=== PATIENT | female | born 1985 | race Caucasian/White ===

== ENCOUNTER 2018-03-12 14:43 | Inpatient (IN) | payer OTHER ==
[~2018-03-12] VITALS: Ht 160 cm; Wt 93.0 kg
[2018-03-12] MEDS ORDERED: PRENATAL 19 TA1 EACH PO (19:14)
[2018-03-12] MEDS ORDERED: ZYRTEC10 MG PO (19:16)
[2018-03-14] MEDS ORDERED: LOCOID15 GM TOP (09:17)
== END 2018-03-14 10:18 | disposition home or self-care (01) | DRG 781 ==
LOC: OB/GYN 14:43 → LDR 14:43 → OB/GYN 03-13 10:55
PROC: 4A1HXCZ Monitoring of Products of Conception, Cardiac Rate, External Approach (ICD-10-PCS; principal; 2018-03-12)
DX: O11.3 Pre-existing hypertension with pre-eclampsia, third trimester (principal); O26.86 Pruritic urticarial papules and plaques of pregnancy (PUPPP); Z3A.32 32 weeks gestation of pregnancy

== ENCOUNTER 2018-04-10 07:21 | Inpatient (IN) | payer OTHER ==
[~2018-04-10] VITALS: Ht 160 cm; Wt 94.3 kg
[~2018-04-10 07:21] MED LIST: LOCOID15 GM TOP; PRENATAL 19 TA1 EACH PO; ZYRTEC10 MG PO
[2018-04-10] MEDS ORDERED: PROBIOTIC1 EAC4 PO (08:41)
== END 2018-04-12 16:46 | DRG 775 ==
LOC: LDR 07:21 → OB/GYN 07:21 → SURH 05-01 16:40
PROC: 10E0XZZ Delivery of Products of Conception, External Approach (ICD-10-PCS; principal; 2018-04-10)
PROC: 0KQM0ZZ Repair Perineum Muscle, Open Approach (ICD-10-PCS; 2018-04-10)
PROC: 10907ZC Drainage of Amniotic Fluid, Therapeutic from Products of Conception, Via Natural or Artificial Opening (ICD-10-PCS; 2018-04-10)
PROC: 3E033VJ Introduction of Other Hormone into Peripheral Vein, Percutaneous Approach (ICD-10-PCS; 2018-04-10)
PROC: 4A033R1 Measurement of Arterial Saturation, Peripheral, Percutaneous Approach (ICD-10-PCS; 2018-04-10)
PROC: 4A1HXCZ Monitoring of Products of Conception, Cardiac Rate, External Approach (ICD-10-PCS; 2018-04-10)
DX: O70.1 Second degree perineal laceration during delivery (principal); Z37.0 Single live birth; O13.4 Gestational [pregnancy-induced] hypertension without significant proteinuria, complicating childbirth; Z3A.37 37 weeks gestation of pregnancy

== ENCOUNTER 2020-08-23 17:39 | Inpatient (IN) | payer OTHER ==
[~2020-08-23] VITALS: Ht 160 cm; Wt 100.7 kg
[~2020-08-23 17:39] MED LIST changes: +PROBIOTIC1 EAC4 PO
[2020-08-23] MEDS ORDERED: PRENATAL + DHA1 EAC1 PO (20:17)
[2020-08-23] MEDS ORDERED: VITAMIN C100 MG PO (20:18)
[2020-08-23] MEDS ORDERED: PEPCID AC20 MG PO (20:23)
[2020-08-27] MEDS ORDERED: NAPR500T14 PO (08:59)
== END 2020-08-27 17:33 | DRG 807 ==
LOC: LDR 17:39 → OB/GYN 08-24 17:29
PROVIDERS: ADMIT Obstetrics & Gynecology; ATTEND Obstetrics & Gynecology
PROC: 4A0HXFZ Measurement of Products of Conception, Cardiac Rhythm, External Approach (ICD-10-PCS; 2020-08-23)
PROC: 10E0XZZ Delivery of Products of Conception, External Approach (ICD-10-PCS; principal; 2020-08-24)
PROC: 0KQM0ZZ Repair Perineum Muscle, Open Approach (ICD-10-PCS; 2020-08-24)
DX: O60.14X0 Preterm labor third trimester with preterm delivery third trimester, not applicable or unspecified (principal); Z37.0 Single live birth; O70.1 Second degree perineal laceration during delivery; Z3A.36 36 weeks gestation of pregnancy

== ENCOUNTER 2023-12-12 05:59 | Day surgery (SDC) | payer OTHER ==
[2023-12-09 11:24] LABS: HEMATOCRIT 41.3 % (36.0-45.00); HEMOGLOBIN 13.9 g/dL (12.0-15.00); MEAN CELL VOLUME 86.2 fL (80.00-100.00); MEAN CORPUSCULAR HEMOGLOBIN 29.1 pg (27.00-32.0); MEAN CORPUSCULAR HGB CONC 33.8 g/dl (32.0-36.0); PLATELET COUNT 284 K/uL (150-450); RED BLOOD COUNT 4.79 M/uL (4.00-6.00)
[2023-12-09 11:27] LABS: PH,URINE 7.5 (5.0-8.0); URINE APPEARANCE Clear; URINE BILIRRUBIN Negative (NEGATIVE); URINE BLOOD Negative; URINE COLOR Yellow; URINE GLUCOSE Negative (NEGATIVE); URINE LEUKOCYTE Negative; URINE NITRATE Negative; URINE PROTEIN Negative (NEGATIVE); URINE UROBILINOGEN 0.2 E.U./dl
[2023-12-09 11:34] LABS: URINE BACTERIA 56.6 uL (0.0-1933); URINE RBC 3.4 uL (0.0-20.8)
[2023-12-09 11:39] LABS: URINE WBC 0.3 uL (0.0-23.2)
[2023-12-09 12:02] LABS: INR 0.97; PROTHROMBIN TIME 10.2 SECONDS (9.0-11.5)
[2023-12-09 12:12] LABS: ALBUMIN 3.8 gm/dL (3.4-5.0); BILIRUBIN TOTAL 0.44 mg/dL (0.3-1.2); CALCIUM 9.5 mg/dL (8.5-10.1); CREATININE SERUM 0.68 mg/dL (0.55-1.02); GFR 96.83; POTASSIUM 4.75 mEq/L (3.5-5.1); TOTAL PROTEIN 6.8 gm/dL (6.4-8.2); TSH 1.46 uIU/mL (0.358-3.74)
[~2023-12-12 05:59] MED LIST changes: +NAPR500T14 PO; +PEPCID AC20 MG PO; +PRENATAL + DHA1 EAC1 PO; +VITAMIN C100 MG PO
[2023-12-12] MEDS ORDERED: NAPR500T14 PO (10:18)
[2023-12-12] MEDS ORDERED: MORGIDOX100 MG PO (10:18)
== END 2023-12-12 17:30 | disposition home or self-care (01) ==
LOC: CIR.AMB 05:59
PROVIDERS: ATTEND Obstetrics & Gynecology
DX: N85.02 Endometrial intraepithelial neoplasia [EIN] (principal); N93.8 Other specified abnormal uterine and vaginal bleeding; D25.0 Submucous leiomyoma of uterus; Z88.1 Allergy status to other antibiotic agents; Z88.2 Allergy status to sulfonamides

== ENCOUNTER 2024-02-18 07:15 | Inpatient (IN) | payer OTHER ==
[~2024-02-18] VITALS: Ht 160 cm; Wt 92.1 kg
[~2024-02-18 07:15] MED LIST changes: +MORGIDOX100 MG PO
[2024-02-18 09:32] LABS: PH,URINE 6.5 (5.0-8.0); URINE APPEARANCE Clear; URINE BILIRRUBIN Negative (NEGATIVE); URINE BLOOD Negative; URINE COLOR Yellow; URINE GLUCOSE Negative (NEGATIVE); URINE LEUKOCYTE Negative; URINE NITRATE Negative; URINE PROTEIN Negative (NEGATIVE); URINE UROBILINOGEN 0.2 E.U./dl
[2024-02-18 09:33] LABS: HEMATOCRIT 41.9 % (36.0-45.00); HEMOGLOBIN 14.6 g/dL (12.0-15.00); MEAN CELL VOLUME 83.9 fL (80.00-100.00); MEAN CORPUSCULAR HEMOGLOBIN 29.2 pg (27.00-32.0); MEAN CORPUSCULAR HGB CONC 34.8 g/dl (32.0-36.0); PLATELET COUNT 260 K/uL (150-450); RED BLOOD COUNT 4.99 M/uL (4.00-6.00); RED CELL DISTRIBUTION WIDTH 14.1 % (11.5-14.5)
[2024-02-18 09:35] LABS: URINE BACTERIA 16.3 uL (0.0-1933); URINE EPITHELIAL CELLS 1.8 uL (0.0-38.8)
[2024-02-18 10:06] LABS: URINE WBC 0.9 uL (0.0-23.2)
[2024-02-18 10:13] LABS: PARTIAL THROMBOPLASTIN TIME 30.5 SECONDS (22.0-34.0); PROTHROMBIN TIME 10.5 SECONDS (9.0-11.5)
[2024-02-18 10:19] LABS: ALBUMIN 3.7 gm/dL (3.4-5.0); BILIRUBIN TOTAL 0.48 mg/dL (0.3-1.2); CALCIUM 9.3 mg/dL (8.5-10.1); CREATININE SERUM 0.67 mg/dL (0.55-1.02); GFR 98.5; GLOBULINA 3.1 G/DL (2.4-3.5); POTASSIUM 4.41 mEq/L (3.5-5.1); TOTAL PROTEIN 6.8 gm/dL (6.4-8.2); TSH 1.16 uIU/mL (0.358-3.74)
[2024-02-27] MEDS ORDERED: CLINDAMYCIN PHOSPHATE 150 MG/ML (900mg) ONE (07:29)
[2024-02-27] MEDS ORDERED: POVIDONE-IODINE 118 ML BOTT TOP ONE ×2 (07:29→08:15)
[2024-02-27] MEDS ORDERED: CLINDAMYCIN PHOSPHATE 150 MG/ML (900mg) IV ONE (08:15)
[2024-02-27] MEDS ORDERED: PROMETHAZINE HCL 50 MG/ML AMPUL IV SCH (08:59)
[2024-02-27] MEDS ORDERED: MEPERIDINE HCL/PF 50 MG/ML VIAL IV SCH (08:59)
[2024-02-27] MEDS ORDERED: RINGERS SOLUTION,LACTATED 1,000 ML IV SCH (09:00)
[2024-02-27] MEDS ORDERED: SIMETHICONE 125 MG CAPSULE PO SCH (09:00)
[2024-02-27 14:59] LABS: HEMOGLOBIN 13.9 g/dL (12.0-15.00); MEAN CELL VOLUME 84.5 fL (80.00-100.00); MEAN CORPUSCULAR HEMOGLOBIN 28.7 pg (27.00-32.0); PLATELET COUNT 270 K/uL (150-450); RED BLOOD COUNT 4.85 M/uL (4.00-6.00); RED CELL DISTRIBUTION WIDTH 13.7 % (11.5-14.5)
[2024-02-27] MEDS ORDERED: ACETAMINOPHEN 500 MG GEL..CAP PO PRN (21:00)
[2024-02-27] MEDS ORDERED: FAMOTIDINE/PF 20 MG in 0.9 % SODIUM CHLORIDE 8 ML IV PUSH SCH (21:00)
[2024-02-27] MEDS ORDERED: FAMOTIDINE/PF 20 MG/2 ML VIAL ONE (21:11)
[2024-02-28] MEDS ORDERED: Tylenol #3 RECTAL (08:58)
[2024-02-28] MEDS ORDERED: NAPR500T14 PO (08:58)
[2024-02-28] MEDS ORDERED: Tylenol #3 PO (09:05)
== END 2024-02-28 10:50 | disposition home or self-care (01) | DRG 743 ==
LOC: O/R 02-27 05:29 → SURH 02-27 07:00 → OB/GYN 02-27 10:15
PROVIDERS: ADMIT Obstetrics & Gynecology; ATTEND Obstetrics & Gynecology
PROC: 0JQC0ZZ Repair Pelvic Region Subcutaneous Tissue and Fascia, Open Approach (ICD-10-PCS; 2024-02-27)
PROC: 0USG0ZZ Reposition Vagina, Open Approach (ICD-10-PCS; 2024-02-27)
PROC: 0TJB8ZZ Inspection of Bladder, Via Natural or Artificial Opening Endoscopic (ICD-10-PCS; 2024-02-27)
PROC: 0UT97ZZ Resection of Uterus, Via Natural or Artificial Opening (ICD-10-PCS; principal; 2024-02-27 07:00)
DX: N80.03 Adenomyosis of the uterus (principal); N72 Inflammatory disease of cervix uteri; N81.5 Vaginal enterocele; D25.0 Submucous leiomyoma of uterus; N92.0 Excessive and frequent menstruation with regular cycle; N84.0 Polyp of corpus uteri; Z20.822 Contact with and (suspected) exposure to COVID-19